=== PATIENT | female | born 1960 | race Caucasian/White ===

== ENCOUNTER 2016-10-20 06:20 | Inpatient (IN) | payer OTHER ==
[~2016-10-20] VITALS: Ht 156.2 cm; Wt 72.1 kg
[2016-10-20] VITALS (10 sets, daily range): BP systolic 104–148; BP diastolic 58–79
[~2016-10-20 06:20] MED LIST: ALOE VERA PO; AMLODIPINE BES2.5 MG PO; INVANZ1 GM IV; LEVAQUIN500 MG PO; LEVO-T50 MCG; VICODIN EQUIVAL1 TAB PO; [UNRECOGNIZED DRUG - OTHER] PO
--- NOTE | 2016-10-20 10:16 | OPERATIVE REPORT ---
DATE OF SURGERY: 10/20/2016 SURGEON: Jose Alfredo Fontanez MD UTILIZATION REVIEW SPECIALIST: Shelia Galdamez III, MD PREOPERATIVE DIAGNOSIS: 1. Acute diverticulitis POSTOPERATIVE DIAGNOSIS: 1. Diverticulitis with abscess PROCEDURE PERFORMED: 1. Laparoscopic sigmoid colectomy ANESTHESIA: General. INDICATIONS: The patient is a 56-year-old woman with 4 episodes of diverticulitis and ongoing pain following IV treatment. SURGICAL TECHNIQUE: The patient was taken to the operating room, where a general anesthetic was administered and the patient prepped and draped in the usual sterile fashion. IV antibiotics were administered and the patient received an orogastric tube, Rojas catheter, sequential compression devices, and a local anesthetic of 0.5% Marcaine with epinephrine at each incision site. An infraumbilical incision was made and a Veress needle used to insufflate. A 10 mm port was passed and visualization obtained. There was a cluster of omental adhesions just caudad to this area, in the anterior midline , but none to the umbilicus itself. Two additional trocars were placed in the right side of the abdomen and used to take down the omental adhesions to provide exposure. An additional 5 mm port was placed high on the left side. There was a section of sigmoid colon near the pelvic brim that was severely indurated and stuck to the side wall and to adjacent structures. Small bowel was stuck medially. This was taken down gently using blunt and Thunderbeat dissection. The lateral side was then dissected, freeing it up off the side wall, and this involved a combination of hydrodissection and Thunderbeat dissection. Once this was freed up sufficiently, the colon was divided at the descending and sigmoid colon junction using an endoscopic stapling device. This was done just above the area of induration, where the bowel was soft again. The back wall of the colon was dissected, staying close to the bowel wall the entire time to avoid potential posterior structures, such as ureter and iliac vessels. Note that the planes were pretty severely obliterated. There was a small pocket of pus encountered, which was drained, but did not appear to be extensive and was walled off behind the mesentery. Just below the pelvic brim, the bowel became soft again where the rectum was normal. At this site, another stapler was applied to divide the rectosigmoid junction. The umbilical incision was extended a short distance, and this site was used to extract the specimen, which was submitted for histopathology. The end of the descending colon was pulled up to this site. A pursestring of 4-0 Maxon was placed and the 31 mm anvil tied into the end of the descending colon after sizing it appropriately. The descending colon and anvil were returned to the abdominal cavity. The midline fascia was closed using running 0 Maxon suture, and the wound was subsequently closed at the end of the case with running subcuticular 4-0 Vicryl. Dilators were passed through the rectum to the staple line, following which a 31 mm EEA anastomosis was carried out using the stapler. There were 2 intact donuts of tissue extracted. Insufflation under irrigation revealed no signs of air leak. There was no tension at the anastomotic site. The pelvis was irrigated and all contamination, such as loose fat and blood, was extracted. There was no ongoing bleeding. The larger trocar sites were closed with interrupted subcuticular 4-0 Vicryl. Steri-Strips and dressings were placed and the patient left the operating room in good condition. No intraoperative complications were encountered.
[2016-10-21 02:48] VITALS: BP 128/65
[2016-10-21 06:32] VITALS: BP 109/61
--- NOTE | 2016-10-21 07:44 | Progress Note ---
Subjective General POD #1 post lap sigmoid colectomy Pt. reports no nausea and she is tolerating limited oral liquids. Pain is not severe. She has not yet passed gas of stool. Physical Exam Vital Signs / I&Os Vital Signs Date Time Temp Pulse Resp B/P Pulse O2 O2 Flow FiO2 Ox Delivery Rate 10/21 0632 97.7 57 18 109/61 99 Room Air 10/21 0252 0.0 10/21 0248 97.5 56 16 128/65 96 Room Air 10/20 2228 99.0 65 16 104/58 94 Room Air 0.0 10/20 1813 98.4 62 18 109/63 97 Room Air 10/20 1445 97.5 68 18 117/59 98 Nasal 1.0 Cannula 10/20 1341 66 18 124/73 99 Nasal 1.0 Cannula 10/20 1255 Nasal 1.0 Cannula 10/20 1250 69 18 139/79 98 Nasal 2.0 Cannula 10/20 1222 61 18 133/79 98 Nasal 2.0 Cannula 10/20 1155 60 18 148/75 98 Nasal 2.0 Cannula 10/20 1129 60 18 144/74 98 Nasal 2.0 Cannula 10/20 1112 73 18 146/78 98 Nasal 2.0 Cannula 10/20 1046 97.9 71 18 134/77 98 Nasal 2.0 Cannula 10/20 1030 98.1 61 15 140/71 100 10/20 1020 60 15 145/72 100 10/20 1005 59 16 141/76 100 10/20 0958 57 16 144/76 100 10/20 0950 65 18 136/77 99 10/20 0943 66 17 137/75 99 10/20 0935 76 17 132/76 99 10/20 0930 98.1 83 17 132/85 94 I&O 10/20 0800 10/20 1600 10/21 0000 Intake Total 1000 755 120 Output Total 50 250 1050 Balance 950 505 -930 General Appearance Alert, Oriented X3, Cooperative, No acute distress Abdomen Normal bowel sounds, mild gassiness, dressings intact. Assessment and Plan Problem List 1. S/P laparoscopic colectomy Plan clear liquids as tolerated, advance diet when passes flatus or stool
[2016-10-21 10:46] VITALS: BP 110/72
[2016-10-21 14:27] VITALS: BP 111/76
[2016-10-21 18:34] VITALS: BP 113/67
[2016-10-21 21:38] VITALS: BP 102/61
[2016-10-22 03:07] VITALS: BP 126/77
[2016-10-22 06:51] VITALS: BP 106/67
[2016-10-22 10:19] VITALS: BP 106/64
[2016-10-22 14:17] VITALS: BP 116/83
[2016-10-22 18:49] VITALS: BP 114/72
[2016-10-22 22:41] VITALS: BP 126/70
[2016-10-23 02:55] VITALS: BP 121/69
[2016-10-23 06:23] VITALS: BP 123/66
[2016-10-23 10:39] VITALS: BP 121/84
--- NOTE | 2016-10-23 12:17 | Provider's Discharge Care Plan ---
Problem, Goal, Plan Problem List 1. S/P laparoscopic colectomy
--- NOTE | 2016-10-23 12:17 | Provider's Discharge Care Plan ---
Problem, Goal, Plan Problem List 1. S/P laparoscopic colectomy
== END 2016-10-23 14:03 | disposition home or self-care (01) | DRG 330 ==
LOC: SCU SRH 06:20 → ACUTE2 SRH 06:20 → U SRH 07:30 → ACUTE2 SRH 11:57
PROVIDERS: ADMIT Surgery
PROC: 0DBN0ZZ Excision of Sigmoid Colon, Open Approach (ICD-10-PCS; principal; 2016-10-20 07:30)
DX: K57.20 Diverticulitis of large intestine with perforation and abscess without bleeding (principal); K66.0 Peritoneal adhesions (postprocedural) (postinfection); I10 Essential (primary) hypertension; E03.9 Hypothyroidism, unspecified
CPT/HCPCS: 50002; 60001; 70002; 80102; 80212; 80248; 82320; 82669; 82723; 82794; 82897; 83587; 83982; 84038; 84041; 84344; 90001; 90074; 90155; 91004; 91162; 91163